=== PATIENT | male | born 1995 | race Caucasian/White ===

== ENCOUNTER 2022-05-19 16:47 | Emergency (ER) | payer OTHER ==
[2022-05-19 17:01] VITALS: BP 125/81; RESP 18; TEMP 98.2; BMI 26.8
[2022-05-19] MEDS ORDERED: KETOROLAC TROMETHAMINE 30 MG/1 ML VIAL IM ONE (18:05)
[2022-05-19] MEDS ORDERED: KETOROLAC TROMETHAMINE 30 MG/1 ML VIAL ONE (18:12)
[2022-05-19 18:21] VITALS: PULSE 85
== END 2022-05-19 19:36 | disposition home or self-care (01) ==
LOC: JERFT 16:47
PROC: 3E0233Z Introduction of Anti-inflammatory into Muscle, Percutaneous Approach (ICD-10-PCS; principal; 2022-05-19)
DX: M25.562 Pain in left knee (principal)
CPT/HCPCS: 73562-TC-LT-FY; 99284-25

== ENCOUNTER 2022-07-23 01:14 | Emergency (ER) | payer OTHER ==
[2022-07-23 01:23] VITALS: BP 95/64; PULSE 62; RESP 18; TEMP 97.7; BMI 26.6
[2022-07-23] MEDS ORDERED: diphenhydrAMINE HCL 25 MG CAPSULE (FP) PO ONE ×2 (02:39→02:41)
== END 2022-07-23 02:54 | disposition home or self-care (01) ==
LOC: JER 01:14
DX: R21 Rash and other nonspecific skin eruption (principal)
CPT/HCPCS: 99283-25